=== PATIENT | male | born 1985 | race African-American/Black ===

== ENCOUNTER 2024-07-27 22:57 | Emergency (ER) | payer MEDICAID ==
[~2024-07-27] VITALS: Ht 195.6 cm; Wt 93.0 kg
[2024-07-27 23:24] VITALS: O2SAT 100
[2024-07-28 01:30] VITALS: BP 153/103; PULSE 80; RESP 20; TEMP 98.8
[2024-07-28] MEDS: ACETAMINOPHEN 325MG TABLET PO ONE (01:30)
[2024-07-28] MEDS: KETOROLAC 30MG/ML VIAL IM ONE (01:30)
== END 2024-07-28 02:15 | disposition home or self-care (01) ==
LOC: ER 22:57
DX: S93.402A Sprain of unspecified ligament of left ankle, initial encounter (principal); X58.XXXA Exposure to other specified factors, initial encounter; Y93.89 Activity, other specified; Y92.89 Other specified places as the place of occurrence of the external cause; Y99.8 Other external cause status
CPT/HCPCS: 99283; 73610; 96372; J1885; Z7610